=== PATIENT | female | born 1955 | race Caucasian/White ===

== ENCOUNTER 2021-01-11 15:47 | Inpatient (IN) | payer MEDICARE, OTHER ==
[~2021-01-11] VITALS: Ht 152.4 cm; Wt 40.4 kg
[2021-01-11 22:34] LABS: HEMOGLOBIN 9.4 gm/dl (12.3-15.3); RED BLOOD COUNT 3.24 M/UL (4.00-5.10); WHITE BLOOD COUNT 10.7 K/UL (4.5-11.0)
[2021-01-11] MEDS ORDERED: OMEPRAZOLE20 M1 PO (22:46)
[2021-01-11] MEDS ORDERED: BENICAR40 MG PO (22:46)
[2021-01-11] MEDS ORDERED: CITRACAL + D E1 EACH PO (22:46)
[2021-01-11] MEDS ORDERED: BUSPIRONE HCL15 MG PO (22:47)
[2021-01-11] MEDS ORDERED: ZOCOR20 MG PO (22:47)
[2021-01-11] MEDS ORDERED: MIRTAZAPINE45 MG PO (22:48)
[2021-01-11] MEDS ORDERED: NORVASC5 MG PO (22:48)
[2021-01-11] MEDS ORDERED: LYRICA75 MG PO (22:49)
[2021-01-11 22:50] LABS: BUN/CREATININE RATIO 47 (0-10)
[2021-01-11] MEDS ORDERED: ALBUTEROL1.25 MG/3 INH (22:50)
[2021-01-11] MEDS ORDERED: ISOSORBIDE MONO30 MG PO (22:50)
[2021-01-11] MEDS ORDERED: PLAVIX 75 MG TA75 MG PO (22:51)
[2021-01-11] MEDS ORDERED: HYDROXYZINE HCL25 MG PO (22:52)
[2021-01-11] MEDS ORDERED: ALDACTONE25 MG PO (22:53)
[2021-01-11] MEDS ORDERED: CARVEDILOL6.25 MG PO (22:53)
[2021-01-11] MEDS ORDERED: ZYRTEC10 M3 PO (22:54)
[2021-01-11] MEDS ORDERED: DALIRESP500 MCG PO (22:55)
[2021-01-11] MEDS ORDERED: IMITREX50 MG PO (22:55)
[2021-01-11] MEDS ORDERED: MUCINEX600 MG PO (22:56)
[2021-01-11] MEDS ORDERED: ANTI-DIARRHEAL2 MG PO (22:56)
[2021-01-11] MEDS ORDERED: PREDNISONE 10 M10 MG PO (22:57)
[2021-01-11] MEDS ORDERED: LEVOFLOXACIN750 MG PO (22:58)
[2021-01-11] MEDS ORDERED: AEROBIKA1 EACH MC (22:59)
[2021-01-11] MEDS ORDERED: TRELEGY ELLIPT1 EACH INH (23:01)
[2021-01-11] MEDS ORDERED: TRELEGY INH (23:01)
[2021-01-11] MEDS ORDERED: VENTOLIN HFA 66.7 GM INH (23:02)
[2021-01-12 02:39] LABS: BORDETELLA PARAPERTUSSIS Not Detected (Not Detectd); BORDETELLA PERTUSSIS Not Detected (Not Detectd); CHLAMYDIA PNEUMONIAE Not Detected (Not Detectd); CORONAVIRUS HKU1 Not Detected (Not Detectd); CORONAVIRUS NL63 Not Detected (Not Detectd); CORONAVIRUS OC43 Not Detected (Not Detectd); CORONOAVIRUS 229E Not Detected (Not Detectd); HUMAN METAPNEUMOVIRUS Not Detected (Not Detectd); HUMAN RHINOVIRUS/ENTEROVIRUS Not Detected (Not Detectd); INFLUENZA A Not Detected (Not Detectd); INFLUENZA B Not Detected (Not Detectd); MYCOPLASMA PNEUMONIAE Not Detected (Not Detectd); PARAINFLUENZA VIRUS 1 Not Detected (Not Detectd); PARAINFLUENZA VIRUS 2 Not Detected (Not Detectd); PARAINFLUENZA VIRUS 3 Not Detected (Not Detectd); PARAINFLUENZA VIRUS 4 Not Detected (Not Detectd); RESPIRATORY SYNCYTIAL VIRUS Not Detected (Not Detectd)
[2021-01-12 03:31] LABS: SARS-CoV-2 NOT DETECTED (Not Detectd)
[2021-01-12 10:34] LABS: BODY FLUID SOURCE PLEURAL
[2021-01-12 10:35] LABS: MONONUCLEAR CELLS 20.4 (75-100); POLYMORPHONUCLEAR % 79.6 (0-25); RBC (AUTOMATED) 3600 (0-100000); WBC (AUTOMATED) 2015 (0-500)
[2021-01-12 10:41] LABS: LDH, BODY FLUID 61 U/L; TOTAL PROTEIN, BODY FLUID 1.7 gm/dL
[2021-01-13 05:33] LABS: HEMOGLOBIN 8.6 gm/dl (12.3-15.3); RED BLOOD COUNT 3.06 M/UL (4.00-5.10)
[2021-01-13 05:51] LABS: BUN/CREATININE RATIO 56 (0-10)
[2021-01-14 05:29] LABS: HEMOGLOBIN 7.5 gm/dl (12.3-15.3); WHITE BLOOD COUNT 5.9 K/UL (4.5-11.0)
[2021-01-14 05:37] LABS: BUN/CREATININE RATIO 44 (0-10); RED BLOOD COUNT 2.72 M/UL (4.00-5.10)
--- NOTE | 2021-01-15 04:04 | NUR ---
01/14/21 2300 PT USING [facility]
[2021-01-15 10:28] LABS: HEMOGLOBIN 9.2 gm/dl (12.3-15.3); WHITE BLOOD COUNT 5.8 K/UL (4.5-11.0)
[2021-01-15 10:32] LABS: RED BLOOD COUNT 3.25 M/UL (4.00-5.10)
[2021-01-15 11:12] LABS: BUN/CREATININE RATIO 37 (0-10)
[2021-01-16 04:15] LABS: HEMOGLOBIN 8.4 gm/dl (12.3-15.3); RED BLOOD COUNT 2.94 M/UL (4.00-5.10); WHITE BLOOD COUNT 4.9 K/UL (4.5-11.0)
[2021-01-16 04:44] LABS: BUN/CREATININE RATIO 37 (0-10)
[2021-01-16] MEDS ORDERED: FERROUS SULFAT325 M2 PO (11:11)
== END 2021-01-16 18:25 | disposition home or self-care (01) | DRG 208 ==
LOC: CCU 22:32 → M/S 22:32
PROVIDERS: Internal Medicine; ADMIT Internal Medicine
PROC: 5A1945Z Respiratory Ventilation, 24-96 Consecutive Hours (ICD-10-PCS; principal; 2021-01-11)
PROC: 0W9B3ZZ Drainage of Left Pleural Cavity, Percutaneous Approach (ICD-10-PCS; 2021-01-12)
PROC: 0B21XEZ Change Endotracheal Airway in Trachea, External Approach (ICD-10-PCS; 2021-01-13)
PROC: 0B9J8ZX Drainage of Left Lower Lung Lobe, Via Natural or Artificial Opening Endoscopic, Diagnostic (ICD-10-PCS; 2021-01-13)
PROC: 5A09357 Assistance with Respiratory Ventilation, Less than 24 Consecutive Hours, Continuous Positive Airway Pressure (ICD-10-PCS; 2021-01-13)
DX: J96.22 Acute and chronic respiratory failure with hypercapnia (principal); J18.9 Pneumonia, unspecified organism; J44.0 Chronic obstructive pulmonary disease with (acute) lower respiratory infection; J44.1 Chronic obstructive pulmonary disease with (acute) exacerbation; J90 Pleural effusion, not elsewhere classified; R64 Cachexia; Z68.1 Body mass index [BMI] 19.9 or less, adult; Z16.12 Extended spectrum beta lactamase (ESBL) resistance; E44.0 Moderate protein-calorie malnutrition; Z20.822 Contact with and (suspected) exposure to COVID-19; J96.21 Acute and chronic respiratory failure with hypoxia; F17.210 Nicotine dependence, cigarettes, uncomplicated; D64.9 Anemia, unspecified; I10 Essential (primary) hypertension; L89.152 Pressure ulcer of sacral region, stage 2; B96.20 Unspecified Escherichia coli [E. coli] as the cause of diseases classified elsewhere; G40.909 Epilepsy, unspecified, not intractable, without status epilepticus; Z99.81 Dependence on supplemental oxygen; Z85.41 Personal history of malignant neoplasm of cervix uteri; Z86.73 Personal history of transient ischemic attack (TIA), and cerebral infarction without residual deficits; Z79.02 Long term (current) use of antithrombotics/antiplatelets; Z79.899 Other long term (current) drug therapy
CPT/HCPCS: 36415; 36600; 71045; 71046; 71250; 80048; 80202; 82140; 82150; 82550; 82553; 82803; 82945; 83605; 83615; 83986; 84132; 84157; 84484; 85025; 85027; 87040; 87070; 87077; 87186; 87205; 87633; 89051; 93005; 94002; 94003; 94640; 94660; 94664; 94760; 97110; 97110-GP-CQ; 97116-GP-CQ; 97161; 97165; 97530; 97535; A6212; C1751; C9113; J1120; J1335; J1650; J2250; J2543; J2704; J2920